=== PATIENT | female | born 2000 | race Caucasian/White ===

== ENCOUNTER 2022-09-02 09:53 | Inpatient (IN) ==
[2022-09-02] MEDS ORDERED: CARBOPROST TROMETHAMINE 250 MCG/ML AMP IM PRN (10:03)
[2022-09-02] MEDS ORDERED: METHYLERGONOVINE 0.2 MG/1 ML AMP IM PRN (10:03)
[2022-09-02] MEDS ORDERED: miSOPROStoL 200 MCG TABLET RECTAL PRN (10:03)
[2022-09-02] MEDS ORDERED: CITRIC ACID/SODIUM CITRATE 30 ML UDCUP PO ONE (10:03)
[2022-09-02] MEDS ORDERED: FAMOTIDINE 20 MG/2 ML VIAL IV ONE (10:03)
[2022-09-02] MEDS ORDERED: OXYTOCIN/LR 20 UNIT/1,000 ML BAG IV ONE ×2 (10:03→16:42)
[2022-09-02] MEDS ORDERED: TRANEXAMIC ACID 1,000 MG in SODIUM CHLORIDE 0.9% 100 ML IV PRN (10:03)
[2022-09-02] MEDS ORDERED: ceFAZolin 3,000 MG in SYRINGE 1 EACH IV ONE (10:03)
[2022-09-02] MEDS ORDERED: LACTATED RINGERS 1,000 ML IV ONE (10:04)
[2022-09-02] MEDS ORDERED: LACTATED RINGERS 1,000 ML IV SCH ×2 (10:30→17:00)
[2022-09-02 10:41] LABS: Basophils % 0.2 % (0.0-0.8); Eosinophils % 0.4 % (0.00-10.9); Hematocrit 34.6 VOL% (35.7-47.0); Immature Granulocytes % 0.4 %; Immature Granulocytes Absolute 0.03 #; Lymphocytes # 2.2 10*3/uL (1.4-4.0); Mean Corpuscular HGB Conc 31.8 GM/DL (32-36); Mean Corpuscular Volume 84.4 FL (87-102); Mean Platelet Volume 12.5 FL (9.6-12.0); Monocytes # 0.5 10*3/uL (0.11-0.8); Monocytes % 6.3 % (1.7-12.7); Neutrophils % 65.7 % (38.7-73.9); Platelet Count 176 T/CUMM (130-400); White Blood Count 8.11 T/CUMM (4-12)
[2022-09-02 11:07] LABS: Albumin 2.5 G/DL (3.4-5.0); Bilirubin,Total 0.4 MG/DL (0.20-1.00); Calcium 8.7 MG/DL (8.5-10.1); Osmolality,Calculated 271.8 MOS/KG (273-304); Potassium 4.1 MMOL/L (3.5-5.1); Total Protein 6.7 G/DL (6.4-8.2)
[2022-09-02] MEDS ORDERED: OXYTOCIN 10 UNIT/ML VIAL IM ONE (14:00)
[2022-09-02] MEDS ORDERED: OXYTOCIN/LR 30 UNIT/1,000 ML BAG IV ONE (14:00)
[2022-09-02] MEDS ORDERED: ONDANSETRON 4 MG/2 ML VIAL ONE ×2 (14:39→15:31)
[2022-09-02] MEDS ORDERED: buprenorphine HCL 0.3 MG/ML VIAL ONE (14:39)
[2022-09-02 15:24] LABS: Cord Arterial Blood HCO3 14.3 MMOL/L
[2022-09-02 15:27] LABS: Cord Venous Blood HCO3 15.4 MMOL/L; Cord Venous Blood PCO2 66.4 MMHG; Cord Venous Blood PO2 18.7
[2022-09-02] MEDS ORDERED: GLYCOPYRROLATE 0.4 MG/2 ML VIAL ONE (15:31)
[2022-09-02] MEDS ORDERED: KETOROLAC 30 MG/1 ML VIAL ONE (15:31)
[2022-09-02] MEDS ORDERED: PHENYLEPHRINE 1 MG/10 ML SYRINGE IV ONE (15:31)
[2022-09-02] MEDS ORDERED: ONDANSETRON 4 MG/2 ML VIAL IV PRN ×2 (15:43→16:42)
[2022-09-02] MEDS ORDERED: diphenhydrAMINE 50 MG/1 ML VIAL IV PRN (15:43)
[2022-09-02] MEDS ORDERED: hydrOXYzine HCL 25 MG/1 ML VIAL IM PRN (15:43)
[2022-09-02] MEDS ORDERED: HYDROmorphone 1 MG/1 ML SYRINGE IV PRN (15:43)
[2022-09-02 16:28] LABS: Bilirubin,Urine Negative (Negative); Blood, Urine Negative (Negative); Glucose,Urine (UA) Negative (Negative); Ketones,Urine >=160 mg/dL (Negative); Mucus,Urine Occasional /LPF (Occasional); Nitrite,Urine Negative (Negative); Protein,Urine Negative (Negative); RBC,Urine 1 /HPF (0-4); Squamous Epithelial Cell,Urine Occasional /HPF (0-10); Urine Appearance Clear (Clear); Urine Color Yellow (Yellow); Urine Specific Gravity >= 1.030 (1.001-1.035); Urine Urobilinogen 0.2 eU/dL (<2.0)
[2022-09-02] MEDS ORDERED: GLUCAGON 1 MG VIAL IM PRN (16:42)
[2022-09-02] MEDS ORDERED: ACETAMINOPHEN 325 MG TABLET PO PRN (16:42)
[2022-09-02] MEDS ORDERED: IBUPROFEN 800 MG TABLET PO PRN (16:42)
[2022-09-02] MEDS ORDERED: MAGNESIUM HYDROXIDE SUSP 30 ML UDCUP PO PRN (16:42)
[2022-09-02] MEDS ORDERED: SIMETHICONE CHEW 80 MG TABLET PO PRN (16:42)
[2022-09-02] MEDS ORDERED: DEXTROSE 10% 250 ML BAG IV PRN (16:42)
[2022-09-02] MEDS ORDERED: RHO(D) IMMUNE GLOBULIN 300 MCG SYRINGE IM ONE (16:42)
[2022-09-02] MEDS ORDERED: ACETAMINOPHEN 500 MG TABLET PO PRN (18:30)
[2022-09-02] MEDS ORDERED: KETOROLAC 30 MG/1 ML VIAL IV SCH (21:30)
[2022-09-02] MEDS: KETOROLAC 30 MG/1 ML VIAL IV SCH (22:10)
[2022-09-02] MEDS: DOCUSATE SODIUM 100 MG CAPSULE PO SCH (22:15)
[2022-09-02] MEDS: ACETAMINOPHEN 500 MG TABLET PO PRN (22:15)
[2022-09-02] MEDS: ceFAZolin 2,000 MG/50 ML DUPLEX IV SCH (23:36)
[2022-09-03 00:19] LABS: Basophils % 0.2 % (0.0-0.8); Eosinophils % 0.2 % (0.00-10.9); Immature Granulocytes % 0.2 %; Immature Granulocytes Absolute 0.02 #; Lymphocytes # 2.1 10*3/uL (1.4-4.0); Lymphocytes % 25.6 % (21.3-54.2); Mean Corpuscular HGB Conc 32.3 GM/DL (32-36); Mean Corpuscular Volume 84.9 FL (87-102); Mean Platelet Volume 12.5 FL (9.6-12.0); Monocytes # 0.6 10*3/uL (0.11-0.8); Monocytes % 7.5 % (1.7-12.7); Neutrophils % 66.3 % (38.7-73.9); Platelet Count 141 T/CUMM (130-400); Red Blood Count 3.65 MC/CUMM (3.8-5.5); Red Cell Distribution Width 13.9 % (9.3-17.3); White Blood Count 8.09 T/CUMM (4-12)
[2022-09-03] MEDS: INSULIN REGULAR 100 UNIT/ML SUBCUT SCH ×5 (00:53→21:28)
[2022-09-03] MEDS: KETOROLAC 30 MG/1 ML VIAL IV SCH ×2 (04:03→09:32)
[2022-09-03] MEDS: ACETAMINOPHEN 500 MG TABLET PO PRN (04:03)
[2022-09-03] MEDS: ceFAZolin 2,000 MG/50 ML DUPLEX IV SCH (06:44)
[2022-09-03 07:19] LABS: Basophils % 0.3 % (0.0-0.8); Eosinophils # 0.1 10*3/uL (0.0-0.87); Eosinophils % 0.9 % (0.00-10.9); Hematocrit 29.7 VOL% (35.7-47.0); Hemoglobin 9.3 GM/DL (12.0-16.0); Immature Granulocytes % 0.3 %; Immature Granulocytes Absolute 0.02 #; Lymphocytes # 1.8 10*3/uL (1.4-4.0); Lymphocytes % 25.6 % (21.3-54.2); Mean Corpuscular HGB Conc 31.3 GM/DL (32-36); Mean Corpuscular Volume 85.8 FL (87-102); Mean Platelet Volume 12.4 FL (9.6-12.0); Monocytes # 0.8 10*3/uL (0.11-0.8); Monocytes % 11.5 % (1.7-12.7); Neutrophils % 61.4 % (38.7-73.9); Platelet Count 133 T/CUMM (130-400); Red Blood Count 3.46 MC/CUMM (3.8-5.5); Red Cell Distribution Width 14.2 % (9.3-17.3); White Blood Count 6.88 T/CUMM (4-12)
[2022-09-03] MEDS: DOCUSATE SODIUM 100 MG CAPSULE PO SCH ×2 (09:27→21:38)
[2022-09-03] MEDS: MULTIVITAMIN (PRENATAL) TABLET PO SCH (09:27)
[2022-09-03] MEDS ORDERED: METOCLOPRAMIDE 10 MG TABLET PO PRN (21:30)
[2022-09-04 07:28] VITALS: BP 109/59
[2022-09-04] MEDS: INSULIN REGULAR 100 UNIT/ML SUBCUT SCH (08:51)
[2022-09-04] MEDS: DOCUSATE SODIUM 100 MG CAPSULE PO SCH (09:50)
[2022-09-04] MEDS: MULTIVITAMIN (PRENATAL) TABLET PO SCH (09:50)
[2022-09-04] MEDS ORDERED: SERTRALINE 50 MG TABLET PO SCH (10:16)
== END 2022-09-04 12:30 | disposition home or self-care (01) | DRG 540 ==
LOC: N.LDOUT 09:53 → N.LD 09:56 → N.OB 20:00
PROVIDERS: ADMIT Obstetrics & Gynecology; ATTEND Obstetrics & Gynecology
PROC: LDCSECT (ICD-10-PCS; 2022-09-02 14:00)